=== PATIENT | male | born 1955 | race Caucasian/White ===

== ENCOUNTER 2025-01-19 12:44 | Emergency (ER) | payer OTHER, BC ==
[2025-01-19 13:00] VITALS: BP 135/92; PULSE 88; RESP 18; TEMP 98.6; BMI 29.8
[2025-01-19 13:46] LABS: EPITHELIAL CELLS 0-5 /hpf
== END 2025-01-19 14:09 | disposition home or self-care (01) ==
LOC: FER 12:44
DX: R31.9 Hematuria, unspecified (principal)
CPT/HCPCS: 81003; 81015; 99283-25